=== PATIENT | female | born 1950 | race Caucasian/White ===

== ENCOUNTER 2017-01-25 13:32 | Emergency (ER) | payer OTHER ==
[~2017-01-25] VITALS: Ht 165.1 cm; Wt 84.3 kg
[2017-01-25] MEDS ORDERED: MOTRIN800 MG PO (15:09)
[2017-01-25] MEDS ORDERED: PERCOCET 5/31 TABLET PO (15:09)
[2017-01-25 15:21] VITALS: BP 135/90
== END 2017-01-25 15:23 | disposition home or self-care (01) ==
LOC: EME 13:32
DX: S40.012A Contusion of left shoulder, initial encounter (principal); W01.0XXA Fall on same level from slipping, tripping and stumbling without subsequent striking against object, initial encounter; Y92.239 Unspecified place in hospital as the place of occurrence of the external cause; Y99.0 Civilian activity done for income or pay; Z87.891 Personal history of nicotine dependence
CPT/HCPCS: 73030; 99281; 99284